=== PATIENT | male | born 1955 | race Two or more races ===

== ENCOUNTER 2021-07-15 12:46 | Emergency (ER) | payer BC, SELFPAY ==
--- NOTE | ~2021-07-15 | XR_ITS ---
XR ribs RT 2V DATE: 07/15/2021 13:15 INDICATION: Patient fell on table. Posterolateral upper rib pain TECHNIQUE: 3 views of right ribs COMPARISON: None FINDINGS: No right rib fracture is evident. No right lung infiltrate or consolidation or pneumothorax . No right pleural effusion. IMPRESSION: No right rib fracture is detected Reviewed, dictated and finalized at location B.
[2021-07-15 12:55] VITALS: BP 154/79; PULSE 60; RESP 14; TEMP 36.7; O2SAT 100
[2021-07-15 13:01] VITALS: BP 154/79; PULSE 60; RESP 14; TEMP 36.7; O2SAT 100
--- NOTE | 2021-07-15 13:07 | ED.GENADULT ---
HPI - General Adult General Chief complaint: Fall Stated complaint: right side pain Time Seen by Provider: 07/15/21 13:07 Source: patient and RN notes reviewed Mode of arrival: ambulatory Limitations: no limitations History of Present Illness HPI narrative: 65-year-old male presents to [facility] care with complaints of right lateral chest into the posterior region after fall while watering plants and hitting his side on table on deck. Patient reports that he took some Tylenol which helped his discomfort.On Sunday he was planting and movements associated with digging increased his pain. He states that he is unable to sleep on his right side and pain increases with movement bruising noted to lateral right upper chest area. MD complaint: right lateral chest into back Onset (ago): day(s) (5) Location: chest (right lateral) Radiation: back Related Data Allergies Allergy/AdvReac Type Severity Reaction Status Date / Time No Known Allergies Allergy Verified 07/15/21 13:07 Review of Systems Review of Systems: CONSTITUTIONAL: Denies fever, chills, or sweats. EYES: Denies visual changes, redness, or discharge. ENT: Denies rhinorrhea, congestion, sore throat, or otalgia. CARDIOVASCULAR: Right lateral chest pain radiating to back no palpitations, or edema. RESPIRATORY: Denies cough or dyspnea. GASTROINTESTINAL: Denies abdominal pain, nausea, vomiting, or diarrhea. GENITOURINARY: Denies dysuria or hematuria. SKIN: Denies rash or itching. MUSCULOSKELETAL: Denies back pain, joint pain, or myalgia. NEUROLOGIC: Denies headache, numbness, or weakness. PSYCHIATRIC: Denies anxiety or depression. All systems reviewed & are unremarkable except as noted in HPI and below PMFSH Comments At time of signature, agree with nursing past medical, surgical, social and family history. There is no relevant family history pertinent to the presenting complaint Exam Narrative: GENERAL: Well-appearing, well-nourished, and in no acute distress. HEAD: Normocephalic, atraumatic. EYES: PERRLA and EOMI. ENT: Nares clear, no rhinorrhea or epistaxis. Mucous membranes moist.TM's normal with good light reflex, throat pink with no tonsil swelling NECK: Supple. no lymphadenopathy CHEST: Clear to auscultation. No respiratory distress. no tachypnea, increase in pain with cough, SAO2 100% on room air. HEART: Regular rate and rhythm. No murmur heard. Normal peripheral pulses. ABDOMEN: Soft, nontender, nondistended, normal active bowel sounds. EXTREMITIES: Normal range of motion. No edema. SKIN: Warm, dry, no rash. NEURO: No focal deficits. Alert and oriented x3. Course Course Level of Care: Express Care Visit Vital Signs Vital signs: Vital Signs Temperature 36.7 C 07/15/21 12:55 Pulse Rate 60 07/15/21 12:55 Respiratory Rate 14 07/15/21 12:55 Blood Pressure 154/79 H 07/15/21 12:55 Pulse Oximetry 100 07/15/21 12:55 Temperature 36.7 C 07/15/21 13:01 Pulse Rate 60 07/15/21 13:01 Respiratory Rate 14 07/15/21 13:01 Blood Pressure 154/79 H 07/15/21 13:01 Pulse Oximetry 100 07/15/21 13:01 Medical Decision Making Differential Diagnosis Differential Diagnosis: right rib fracture, right chest contusion, right rib contusion, pain right lateral chest radiating to back Medical Records Medical records reviewed: Yes I reviewed the external patient's medical records. Vital Signs Vital Signs: Vital Signs Temperature 36.7 C 07/15/21 12:55 Pulse Rate 60 07/15/21 12:55 Respiratory Rate 14 07/15/21 12:55 Blood Pressure 154/79 H 07/15/21 12:55 Pulse Oximetry 100 07/15/21 12:55 Temperature 36.7 C 07/15/21 13:01 Pulse Rate 60 07/15/21 13:01 Respiratory Rate 14 07/15/21 13:01 Blood Pressure 154/79 H 07/15/21 13:01 Pulse Oximetry 100 07/15/21 13:01 Imaging Data Attestation: I personally reviewed and interpreted this imaging study as follows: My impression: no right rib fracture Radiologist's impression: Express
== END 2021-07-15 13:35 | disposition home or self-care (01) ==
PROVIDERS: Emergency Provider Registered Nurse; PCP Internal Medicine
DX: S20.211A Contusion of right front wall of thorax, initial encounter (principal); W19.XXXA Unspecified fall, initial encounter; Y93.H2 Activity, gardening and landscaping
CPT/HCPCS: 71100; 99213; G0463